=== PATIENT | male | born 1985 | race Caucasian/White ===

== ENCOUNTER 2017-10-16 19:05 | Emergency (ER) | payer SELFPAY ==
--- NOTE | 2017-10-16 20:01 | ER Document Report ---
HPI - HPI Patient complains to provider of: groin rash, upper thigh rash Onset: Other - months Onset/Duration: Persistent, Waxing and waning Pain Level: 2 Context: 32 yo with groin rash that itches for months. the thigh lesions don't itch, get red and drain fluid or pus. No hx MRSA Associated Symptoms: None Exacerbated by: Denies Relieved by: Denies Similar symptoms previously: No Recently seen / treated by doctor: No - ROS ROS below otherwise negative: Yes Systems Reviewed and Negative: Yes All other systems reviewed and negative Past Medical History - General Information source: Patient - Social History Smoking Status: Current Every Day Smoker Frequency of alcohol use: None Drug Abuse: None Lives with: Friend Family History: Reviewed & Not Pertinent - Medical History Medical History: Negative Surgical Hx: Negative - Immunizations Hx Diphtheria, Pertussis, Tetanus Vaccination: Yes Vertical Provider Document - CONSTITUTIONAL Agree With Documented VS: Yes Exam Limitations: No Limitations General Appearance: No Apparent Distress - INFECTION CONTROL TRAVEL OUTSIDE OF THE [place] IN LAST 30 DAYS: No - HEENT HEENT: Normocephalic - NECK Neck: Supple - RESPIRATORY O2 Sat by Pulse Oximetry: 98 - MUSCULOSKELETAL/EXTREMETIES Musculoskeletal/Extremeties: EUGENIA ENGLISH - NEURO Level of Consciousness: Awake, Alert - DERM Integumentary: Rash - tinea cruris, bilateral anterior thighs folliculitis Course - Vital Signs Vital signs: Temp Pulse Resp BP Pulse Ox 98.2 F 63 18 125/65 98 10/16/17 19:26 10/16/17 19:26 10/16/17 19:26 10/16/17 19:26 10/16/17 19:26 Discharge - Discharge Clinical Impression: Tinea cruris, Folliculitis, Myalgia Condition: Good Disposition: HOME, SELF-CARE Additional Instructions: topical lamisil to the groin rash twice a day oral lamisil 250mg daily for 2 weeks keflex for the hair follicle infections flexeril for the muscle aches to the applications intern if the rashes persist Prescriptions: Cephalexin Monohydrate [Keflex 500 mg Capsule] 500 mg PO QID #28 capsule Cyclobenzaprine HCl [Flexeril 10 Mg Tablet] 10 mg PO TIDP PRN #20 tablet PRN Reason: Terbinafine HCl [Lamisil 250 mg Tablet] 250 mg PO DAILY #14 tablet Referrals: HELIO CASTILLO, [ACTIVE STAFF] - Follow up as needed
[2017-10-16 20:58] VITALS: BP 120/60
== END 2017-10-16 20:57 | disposition home or self-care (01) ==
LOC: ER 19:05
DX: B35.6 Tinea cruris (principal); L73.9 Follicular disorder, unspecified; M79.1 Myalgia; F17.200 Nicotine dependence, unspecified, uncomplicated
CPT/HCPCS: 99282

== ENCOUNTER 2019-02-22 13:12 | Emergency (ER) | payer SELFPAY ==
[2019-02-22] MEDS ORDERED: OXYCODONE-ACETAMINOPHEN 5-325 MG TABLET PO ONE (13:40)
[2019-02-22] MEDS ORDERED: DIPH/PERTUSS(ACELL)/TETANUS VAC/PF 0.5 ML SYR (>=10YO) IM ONE (13:40)
[2019-02-22] MEDS ORDERED: ONDANSETRON 4 MG TAB.RAPDIS PO ONE (13:40)
--- NOTE | 2019-02-22 13:42 | ER Document Report ---
ED Medical Screen (RME) - General Chief Complaint: Laceration Stated Complaint: HAND LACERATION Time Seen by Provider: 02/22/19 13:40 Mode of Arrival: Wheelchair Information source: Patient Notes: Patient presents emergency department with left hand laceration that occurred while he was working. Reports his last tetanus was 2011. Patient is complaining of extreme pain to the left hand reports it was bleeding a lot. Dressing removed approximately 1.5 cm linear lac noted to left proximal palm no active bleeding. Patient able to move his fingers but reports severe pain I have greeted and performed a rapid initial assessment of this patient. A comprehensive ED assessment and evaluation of the patient, analysis of test results and completion of the medical decision making process will be conducted by additional ED providers. TRAVEL OUTSIDE OF THE [place] IN LAST 30 DAYS: No - Related Data Allergies/Adverse Reactions: No Known Allergies Allergy (Verified 02/22/19 13:12) Past Medical History Renal/ Medical History: Denies: Hx Peritoneal Dialysis - Immunizations Hx Diphtheria, Pertussis, Tetanus Vaccination: Yes Physical Exam - Vital signs Vitals: Temp Pulse Resp BP Pulse Ox 97.8 F 82 18 118/73 100 02/22/19 13:17 02/22/19 13:17 02/22/19 13:17 02/22/19 13:17 02/22/19 13:17 Course - Vital Signs Vital signs: Temp Pulse Resp BP Pulse Ox 97.8 F 82 18 118/73 100 02/22/19 13:17 02/22/19 13:17 02/22/19 13:17 02/22/19 13:17 02/22/19 13:17
--- NOTE | 2019-02-22 14:15 | RADIOLOGY REPORT (SQ) ---
EXAM DESCRIPTION: HAND LEFT 3 VIEWS COMPLETED DATE/TIME: 02/22/2019 2:03 pm REASON FOR STUDY: laceration, ? foreign bodies COMPARISON: None. EXAM PARAMETERS: NUMBER OF VIEWS: Three views. TECHNIQUE: AP, lateral and oblique radiographic images acquired of the left hand. LIMITATIONS: None. FINDINGS: MINERALIZATION: Normal. BONES: No acute fracture or dislocation. No worrisome bone lesions. JOINTS: No effusions. SOFT TISSUES: There is a bandage on the base of the thumb. No definite radiopaque foreign bodies are seen in the soft tissues. OTHER: No other significant finding. IMPRESSION: NEGATIVE STUDY OF THE LEFT HAND. NO RADIOGRAPHIC EVIDENCE OF ACUTE INJURY. TECHNICAL DOCUMENTATION: JOB ID: [id number] [employer]- All Rights Reserved Reading location - IP/workstation name: [email or web address]
[2019-02-22] MEDS ORDERED: LIDOCAINE 1% INJ-PF (10 MG/ML) 30 ML SDV INJ ONE (15:39)
[2019-02-22] MEDS ORDERED: TRANEXAMIC ACID INJ/PF 1,000 MG/10 ML SDV IV ONE (15:45)
--- NOTE | 2019-02-22 16:26 | ER Document Report ---
HPI - HPI Patient complains to provider of: hand laceration Time Seen by Provider: 02/22/19 13:40 Pain Level: 4 Context: Patient is a 33-year-old male presents the emergency department for a laceration to his left palm. Patient states he cut it on the glass from an oven that had broken. Patient states he is allergic to epinephrine. Patient denies any other injuries. - DERM Skin Color: Normal Past Medical History - General Information source: Patient - Social History Smoking Status: Current Every Day Smoker Family History: Reviewed & Not Pertinent Patient has suicidal ideation: No Patient has homicidal ideation: No Renal/ Medical History: Denies: Hx Peritoneal Dialysis - Immunizations Hx Diphtheria, Pertussis, Tetanus Vaccination: Yes Vertical Provider Document - CONSTITUTIONAL Agree With Documented VS: Yes Notes: GENERAL: Alert, interacts well. No acute distress. HEAD: Normocephalic, atraumatic. EYES: Pupils equal, round, and reactive to light. Extraocular movements intact. ENT: Oral mucosa moist, tongue midline. NECK: Full range of motion. Supple. Trachea midline. LUNGS: Clear to auscultation bilaterally, no wheezes, rales, or rhonchi. No respiratory distress. HEART: Regular rate and rhythm. No murmur ABDOMEN: Soft, non-tender. Non-distended. Bowel sounds present in all 4 quadrants. EXTREMITIES: Moves all 4 extremities spontaneously. No edema, normal radial and dorsalis pedis pulses bilaterally. No cyanosis. BACK: no cervical, thoracic, lumbar midline tenderness. No saddle anesthesia, normal distal neurovascular exam. NEUROLOGICAL: Alert and oriented x3. Normal speech. cranial nerves II through XII grossly intact PSYCH: Normal affect, normal mood. SKIN: Warm, dry, normal turgor. V-shaped laceration to the thenar eminence of the left palm. Full range of motion all 5 fingers on the left hand. - INFECTION CONTROL TRAVEL OUTSIDE OF THE [place] IN LAST 30 DAYS: No Course - Re-evaluation Re-evalutation: 02/22/19 16:23 Patient states he is allergic to epinephrine. In attempting to repair the wound patient had a slow ooze bleeding. TXA was ordered and injected into the wound. Bleeding was stopped and I was not able to suture with no complications. Patient tolerated procedure well. Patient stable for discharge. - Vital Signs Vital signs: Temp Pulse Resp BP Pulse Ox 97.8 F 82 18 118/73 100 02/22/19 13:17 02/22/19 13:17 02/22/19 13:17 02/22/19 13:17 02/22/19 13:17 Procedures - Laceration/Wound Repair Left thenar eminence Wound length (cm): 3 Wound's Depth, Shape: Superficial, Irregular Laceration pre-procedure: Sterile PPE donned, Betadine prep applied, Sterile drapes applied, Shur-Clens applied Anesthetic type: Other - TXA Volume Anesthetic (mLs): 5 Wound explored: Clean, No foreign body removed Irrigated w/ Saline (mLs): 500 Wound Debrided: Extensive Wound Repaired With: Sutures Suture Size/Type: 3:0, Ethilon Number of Sutures: 5 Post-procedure wound care: Sterile dressing applied Post-procedure NV exam normal: Yes Complications: No Discharge - Discharge Clinical Impression: Hand laceration Qualifiers: Encounter type: initial encounter Foreign body presence: without foreign body Laterality: left Qualified Code(s): S61.412A - Laceration without foreign body of left hand, initial encounter Condition: Stable Disposition: HOME, SELF-CARE Instructions: Laceration Care ([facility]), Tetanus Immunization Given ([facility]), Soap Cleansing ([facility]), Antibiotic Ointment Protection ([facility]) Additional Instructions: As we discussed you have been seen and treated in the emergency department for a laceration to your left hand. Please keep the wound clean and dry for the next 24 hours. After that you can wash it like normal but do not submerge the wound. Please look for any signs of infection, this would be redness, swelling, discharge from your suture site. Should you see that please return to the emergency room. Otherwise your sutures should be removed in the next 8 to 14 days. Please follow-up with your primary care provider, urgent care, back in this emergency room. Please return to the emergency room should he have any other concerning symptoms. Referrals: [facility] [Provider Group] - Follow up as needed
[2019-02-22 16:35] VITALS: BP 101/63
== END 2019-02-22 16:54 | disposition home or self-care (01) ==
LOC: ER 13:12
DX: S61.412A Laceration without foreign body of left hand, initial encounter (principal); W25.XXXA Contact with sharp glass, initial encounter; F17.200 Nicotine dependence, unspecified, uncomplicated; Z23 Encounter for immunization
CPT/HCPCS: 99283; 90471; 73130; 90715; 12002; S0119; J3490 ×2